=== PATIENT | female | born 1935 | race Caucasian/White ===

== ENCOUNTER → 2019-01-17 | Outpatient (CLI) | payer MEDICARE ==
[~2019-01-17] VITALS: Ht 162.6 cm; Wt 72.6 kg
[~2019-01-17] MED LIST: LIDOCAINE 1% INJ 20 ML 20 ML VIAL INJ ONE
--- NOTE | 2019-01-17 21:23 | Diagnostic Imaging Report ---
INDICATION: Right breast calcifications. Patient presents for stereotactic biopsy. Patient was brought to the stereotactic suite, placed in a chair in a sitting upright position. The right breast was positioned lateral medial. Stereotactic imaging was performed. Calcifications in the upper-outer right breast were stereotactically targeted. Right breast was prepped and draped in the usual sterile fashion. Small amount of 1% lidocaine was utilized for local anesthesia. An 8 gauge needle was advanced from a lateral medial approach and placed per stereotactic accordance. Four core biopsies were obtained with an 8 gauge needle utilizing a vacuum-assisted device. Specimen radiograph was obtained and viewed on dedicated workstation. Specimen radiograph does show calcification in sample labeled #3 and 4. Marker clip was then deployed. Hemostasis was obtained using manual compression. Patient tolerated the procedure well. Followup mammogram shows marker clip in the outer right breast with removal of several calcifications. IMPRESSION: Successful stereotactic biopsy of calcifications in the upper-outer right breast. Pathology results are currently pending. Dictated by: Dictated on workstation # [id number]
== END ==
LOC: RAD 10:01
PROVIDERS: ATTEND Internal Medicine Hematology & Oncology
DX: D05.11 Intraductal carcinoma in situ of right breast (principal); N64.1 Fat necrosis of breast; R92.0 Mammographic microcalcification found on diagnostic imaging of breast
CPT/HCPCS: 19081; 88305; 88360